=== PATIENT | male | born 1995 | race Two or more races ===

== ENCOUNTER 2024-04-06 22:40 | Emergency (ER) | payer MEDICAID ==
[~2024-04-06] VITALS: Ht 162.6 cm; Wt 65.5 kg
[2024-04-06 22:47] VITALS: BP 126/82; PULSE 113; RESP 18; TEMP 97.6; O2SAT 98
== END 2024-04-06 22:55 ==
LOC: ER 22:41
DX: Z02.89 Encounter for other administrative examinations (principal); Z72.89 Other problems related to lifestyle; V87.7XXA Person injured in collision between other specified motor vehicles (traffic), initial encounter; Y93.89 Activity, other specified; Y92.89 Other specified places as the place of occurrence of the external cause; Y99.8 Other external cause status
CPT/HCPCS: 99283